=== PATIENT | male | born 1955 | race Caucasian/White ===

== ENCOUNTER 2016-11-02 18:52 | Emergency (ER) | payer BC ==
[2016-11-02 18:58] VITALS: BP 157/110
[2016-11-02] MEDS ORDERED: Albuterol/Ipratropium NEB.SOL* Albuterol 2.5 MG/Ipratropium 0.5 MG 3 ML INH ONE (19:45)
--- NOTE | 2016-11-02 19:45 | UC ---
Respiratory Complaint HPI - HPI Summary HPI Summary: over the past week has had increasing cough now has brown sputum chest and back hurts when he coughs--no fevers, no sob no ill exposures - History of Current Complaint Chief Complaint: UCBackPain Stated Complaint: URI Time Seen by Provider: 11/02/16 19:27 Hx Obtained From: Patient Onset/Duration: Gradual Onset, Lasting Days, Still Present Timing: Constant Severity Initially: Mild Severity Currently: Moderate Pain Intensity: 6 Pain Scale Used: 0-10 Numeric Character: Cough: Productive, Sputum Description: - brown Aggravating Factors: Nothing Alleviating Factors: Nothing Associated Signs And Symptoms: Positive: Pleuritic Chest Pain, Wheezing, URI - Allergies/Home Medications Allergies/Adverse Reactions: Allergies Allergy/AdvReac Type Severity Reaction Status Date / Time Penicillins Allergy Unknown Hives Verified 11/02/16 18:59 PMH/Surg Hx/FS Hx/Imm Hx Previously Healthy: No Endocrine History: Dyslipidemia Cardiovascular History: Cardiac Disease Neurological History: Seizures - Surgical History Surgical History: Yes Surgery Procedure, Year, and Place: gallbladder. shoulder impingement surgery 3 years ago - Family History Known Family History: Positive: None - Social History Occupation: Employed Full-time Lives: With Family Alcohol Use: None Substance Use Type: Prescribed Smoking Status (MU): Former Smoker Type: Cigarettes Length of Time of Smoking/Using Tobacco: on and off for 20+ years - Immunization History Vaccination Up to Date: Yes Review of Systems Constitutional: Negative Skin: Negative Eyes: Negative ENT: Negative Respiratory: Cough Cardiovascular: Negative Gastrointestinal: Negative Genitourinary: Negative Motor: Negative Neurovascular: Negative Musculoskeletal: Arthralgia - body and back aches Neurological: Negative Psychological: Negative Is Patient Immunocompromised?: No All Other Systems Reviewed And Are Negative: Yes Physical Exam Triage Information Reviewed: Yes Appearance: Well-Nourished, Ill-Appearing, Pain Distress Vital Signs: Initial Vital Signs Temp 98.1 F 11/02/16 18:55 Pulse 82 11/02/16 18:55 Resp 12 11/02/16 18:55 BP 157/110 11/02/16 18:55 Pulse Ox 100 11/02/16 18:55 Vital Signs Reviewed: Yes Eye Exam: Normal Eyes: Positive: Conjunctiva Clear ENT Exam: Normal ENT: Positive: Normal ENT inspection, Hearing grossly normal, Pharynx normal, TMs normal. Negative: Nasal congestion, Nasal drainage, Tonsillar exudate, Trismus, Muffled/hoarse voice Dental Exam: Normal Neck exam: Normal Neck: Positive: Supple, Nontender, No Lymphadenopathy Respiratory Exam: Normal Respiratory: Positive: No respiratory distress, No accessory muscle use, Wheezing, Expiration Cardiovascular Exam: Normal Cardiovascular: Positive: RRR, No Murmur, Pulses Normal, Brisk Capillary Refill Abdomen Description: Negative: CVA Tenderness (R), CVA Tenderness (L) Musculoskeletal Exam: Normal Musculoskeletal: Positive: Strength Intact, ROM Intact, No Edema Neurological Exam: Normal Neurological: Positive: Alert, Muscle Tone Normal Psychological Exam: Normal Skin Exam: Normal UC Diagnostic Evaluation - Laboratory O2 Sat by Pulse Oximetry: 100 - Radiology Xray Interpretation: No Acute Changes Radiology Interpretation Completed By: ED Physician, Radiologist Re-Evaluation - Re-Evaluation First Eval Change: Improved - feels much better after neb---increased airmovement-- Respiratory Course/Dx - Course Course Of Treatment: albuterol, zithromax, robitussin and codiene increase fluids follow with pcp - Differential Dx/Diagnosis Differential Diagnosis/HQI/PQRI: Asthma, Bronchitis, Lower Resp Infection, Sinusitis, Tuberculosis Provider Diagnoses: Bronchitis,with Bronchospasm Discharge - Discharge Plan Condition: Stable Disposition: HOME Prescriptions: Azithromycin TAB* [Zithromax TAB (Z-AJAY) 250 mg #6 tabs] 250 mg PO DAILY #4 tab guaiFENesin/CODIEN 100MG-10MG* [Robitussin AC 100Mg-10Mg*] 5 - 10 ml PO Q4H PRN #60 ml MDD 40 PRN Reason: cough Patient Education Materials: Acute Bronchitis (ED), Hypertension (ED), How to Use a Metered-Dose Inhaler and a Spacer (ED) Referrals: Inocente Patel MD [Primary Care Provider] - 2 Weeks
--- NOTE | 2016-11-02 20:22 | RAD ---
INDICATION: Back pain and "brown sputum" COMPARISON: Similar chest x-ray dated January 11, 2016 TECHNIQUE: PA and lateral views of the chest were obtained. FINDINGS: The heart and mediastinum are normal in size and contour. The lungs are grossly clear. There is no evidence of large pleural effusion. Visualized bones are normal for the patient's age. There is no radiographic evidence of free air beneath the diaphragm IMPRESSION: No radiographic evidence of acute cardiopulmonary disease.
[2016-11-02] MEDS ORDERED: Albuterol HFA INHALER* 8 gm MDI INH ONE (20:32)
[2016-11-02] MEDS ORDERED: Azithromycin TAB* 250 MG PO ONE (20:33)
[2016-11-02] MEDS ORDERED: guaiFENesin/CODIEN 100MG-10MG* 5 ML UDC PO ONE ×2 (20:33→20:45)
== END 2016-11-02 21:05 | disposition home or self-care (01) ==
LOC: UCEAST 18:52
DX: J20.9 Acute bronchitis, unspecified (principal); E78.5 Hyperlipidemia, unspecified; I51.9 Heart disease, unspecified; R56.9 Unspecified convulsions; Z90.49 Acquired absence of other specified parts of digestive tract; Z88.0 Allergy status to penicillin; Z87.891 Personal history of nicotine dependence
CPT/HCPCS: 71020; 99213; A9270-GY; G0463

== ENCOUNTER → 2018-04-03 13:23 | Day surgery (SDC) | payer BC ==
[~2018-04-03 13:23] MED LIST: Acetaminophen TAB* 325 MG PO PRN; Buffered Lidocaine 1% SYRIN* 1 ML/SYRINGE INTRADERM ONE; Bupivacaine 0.5% W/EPI SDV* 30 ML VIAL ONE; Clindamycin 900 MG/D5W BAG(*) 900 MG/50 ML BAG IVPB ONE; Dexamethasone IV* 4 MG/ML 1 ML (4 MG) IV SLOW PU ONE; Dexamethasone IV* 4 MG/ML 1 ML (4 MG) ONE; DiMENhydriNATE IV* 50 MG/ML VIAL IV PUSH PRN; EPINEPHRINE 1 MG/ML 1 ML VIAL ONE; Ketorolac INJ* 30 MG/ML 1 ML VIAL IV PRN; Ketorolac INJ* 30 MG/ML 1 ML VIAL ONE; Lactated Ringers 1000 ML Bag* 1,000 ML IV SCH; Lidocaine 2% PF * 5 ML VIAL ONE; Midazolam* 1 MG/ML 2 ML VIAL (2 MG) ONE; Naloxone* 0.4 MG/ML 1 ML VIAL IV PRN; Ondansetron INJ* 2 MG/ML VIAL ONE; Propofol* 10 MG/ML 20 ML BTL ONE; Propranolol TAB* 40 MG PO ONE; fentaNYL* 50 MCG/ML 2 ML VIAL (100 MCG VIAL) IV PRN; fentaNYL* 50 MCG/ML 2 ML VIAL (100 MCG VIAL) ONE; oxyCODONE/Acetamin 5/325 MG* TAB ONE
[2018-04-03] MEDS: oxyCODONE/Acetamin 5/325 MG* TAB PO PRN ×2 (18:58→19:00)
[2018-04-03 21:52] VITALS: BP 134/79
--- NOTE | 2018-04-05 01:33 | OP ---
DATE OF OPERATION: 04/03/18 - [facility] DATE OF : 55 SURGEON: Jake Estrada MD ASSISTANTS: 1. BOB Wang, assisted me during the first part of the procedure, the right knee. 2. BOB Bauer, assisted me during the second part of the case, the left hand. A physician miner assistant was required for the length of the procedure for help with positioning, retraction, knee manipulation, and closure. ANESTHESIOLOGIST: Dr. Nikita Fuentes. ANESTHESIA: General anesthesia, 10 cc of local anesthesia of 0.25% Marcaine with epinephrine about the right knee. PRE-OP DIAGNOSES: 1. Right knee ganglion cyst. 2. Left hand second metacarpal boss. POST-OP DIAGNOSES: 1. Right knee ganglion cyst. 2. Right knee loose body. 3. Right knee synovitis. 4. Left hand second metacarpal boss. OPERATIVE PROCEDURE: 1. Right knee arthroscopic extensive synovectomy, multiple compartments. 2. Right knee arthroscopic removal of loose body. 3. Right knee area open removal ganglion cyst. 4. Left hand open excision second metacarpal boss, excision partial metacarpal base. ANTIBIOTICS: Clindamycin 100 mg IV. IV FLUIDS: 1400 cc crystalloid. TOURNIQUET TIME: 40 minutes at 300 mmHg, around the right thigh, for the right knee procedure. 28 minutes at 250 mmHg about the left upper arm, for the left hand procedure component to the procedure. SKIN TO SKIN TIME: 96 minutes. It should be noted that this included the right knee procedure followed by the prepping and draping for the second component of the operation, followed by the left hand procedure. It should be noted that I performed a formal surgical time-out before the right knee procedures and then before the left hand procedure. RADIATION UTILIZED: Mini C-arm was used for the left hand component of the procedure, a brief period of time. ARTHROSCOPIC FLUID UTILIZED: Unknown. SPECIMEN: I sent the loose body from the right knee for Pathology. I also sent ganglion cyst wall to Pathology. I also sent a fragment of removed bone from the left second metacarpal base to Pathology. IMPLANTS: None. COMPLICATIONS: None. ESTIMATED BLOOD LOSS: Minimal. INDICATIONS FOR PROCEDURE: The patient presented to me with a bump, persistent about the right knee. This was actually just anterior to the proximal tibia fibula joint. It has been present for over 8 months, worsening, getting larger with time. Cosmetically unappealing to the patient and had started to cause pain. His primary care physician had aspirated it, but it had returned. The patient also described a bump about the contralateral left hand. He thought that it might be a ganglion because he had had contralateral right wrist ganglion removed with surgery in the past. MRI imaging demonstrated that although the bump about the right knee was very close to the proximal tibia fibula joint, that in fact it had a stalk that stretched back to the anterior aspect of the knee joint, about the fat deep to the patellar tendon. X-ray imaging was obtained of the left wrist. I was confident enough based on this exam that he had a metacarpal boss and so we avoided advanced imaging. I signed the patient up for surgery. We discussed the risks and potential complications of these procedures, including recurrence of both the presumably ganglion cyst about the right knee as well as of the metacarpal boss. DESCRIPTION OF PROCEDURE: On preoperative holding, the patient signed a written consent. Operative extremities were marked at preoperative holding. The patient's stated a strong preference for a pathology of any removed samples of body products. The patient was taken to the operating room and placed supine on the operating room table. Sedated and intubated. The right lower extremity was prepped and draped. Tourniquet was placed about the right proximal thigh. A post was placed along the bed and the foot bump was placed on the bed. Surgical time-out was performed. Esmarch was applied to 300 mmHg and the tourniquet was elevated. Established an anterolateral knee arthroscopy portal. Evaluated the patellofemoral compartment. No articular cartilage damage appreciated. The patient did have synovitis suprapatellar. I made an anteromedial knee arthroscopy portal under direct visualization. I debrided this suprapatellar synovitis with an arthroscopic shaver. I next moved down to the intercondylar notch. The patient had a very thickened ligamentum mucosum with much fat about it. The patient had a significant anterior synovitis which I debrided with arthroscopic shaver. I was able to pinpoint where there was a hole in the capsule. I did so by manipulating from the outside the bump and looking for globules of ganglion cyst fluid entering the joint. I opened up the aperture of that hole significantly with both arthroscopic shaver and switching stick. I was able to pass the switching stick from the knee joint, along the anterior aspect of the tibia, down to the ganglion cyst. Opening this up mainly feel comfortable that the ganglion cyst would not recur in the future. It should be noted that just when I first identified the opening in the capsule , a small loose body, hard, cartilaginous or bony, I removed this with a grasper. It was perhaps 3 mm in size in diameter. I did a diagnostic arthroscopy of the remainder of the knee. No meniscus tear or articular cartilage damage. I would like to change the size of that loose body. I think it is more likely that it was approximately 4.5 mm in diameter. I used that as I compared it to the work of the arthroscopic shaver I used intraoperatively. After having confirmed that I had debrided all the inflamed synovium in the joint and there were no more loose bodies. Next, exited the knee joint, all fluids and instruments. I next identified the ganglion. It was quite large. Some fluid now from the knee joint had tracked down into the area of the ganglion, but the ganglion was still very much palpable. I made a longitudinal incision overlying it in the skin. I dissected deep tissue down to the ganglion cyst. I debrided around it. As it was typically the case, it started to rupture and the gel to ooze out. I identified the cyst ruiz and sharply dissected it while being careful with surround anatomy. I removed the ganglion cyst wall structure. Irrigation, then closed that incision site with buried simple stitches in the subcutaneous tissue using Vicryl 2-0 suture. Then a closure of the skin with a running stitch using nylon 3-0 suture. 10 cc of local anesthesia into the subcutaneous tissue surrounding the incision sites. Xeroform, 4x4s, ABDs, sterile Webril, Arya bandages from foot to proximal thigh. Tourniquet was dropped. Cooling unit was not placed at this point, it was placed at the end of the second component of the procedure. I took drapes down off the right lower extremity. The right lower extremity was wrapped in an Arya bandage from right foot to right proximal thigh. We next started the second component of the procedure. My physician miner assistant switched. Hand table was applied to the table for the left upper extremity. A tourniquet was placed around the left upper arm. The left upper extremity was prepped and draped. Surgical time-out was performed. Esmarch was applied and the tourniquet was elevated to 250 mmHg. I then applied the bump on the dorsal aspect of the patient's left hand. I placed a spinal needle into what I believed to be the joint between the second metacarpal and the trapezoid. I brought mini C-arm in and confirmed that this was the correct location. I used this to help determine where I would make my transverse skin incision. I made the transverse skin incision just proximal to the prominent area of the metacarpal boss, at about the level of the joint. I made a skin incision that was transverse, proximally 3 to 4 cm in length. Dissected down with scissors through subcutaneous tissue, respecting all superficial veins and nerves. Dissected down to capsule overlying the second metacarpal trapezoid joint. This was incised longitudinally. I marked this layer with a marking pen prior to cutting it. That layer was retracted. Identified the second metacarpal base as the area of prominence palpable through the skin. This was clearly the offending structure. I noted the ECRL, inserting along the medial aspect of the base. I pulled it out of the way with retraction. I debrided the second metacarpal base of its prominence with a small rongeur. I respected other surrounding bones. I palpated the bone as I retracted. I removed less than 33% of the bone. I retracted and left to make the bone no longer prominent. Irrigation. Application of bone wax. A closure of the capsule with Vicryl 2-0 suture and [id number] stitches. Closure of the skin incision with a running stitch using nylon 4-0 suture. Dropped the tourniquet. No bleeding. Took a final x- ray view. Difficult to discern it with an x-ray imaging. I placed a dressing which consisted of Xeroform, 4x4s, sterile Webril, volar splints, over wrapped in Arya bandage. The patient was awakened and extubated and brought to the PACU. DISPOSITION: The patient was to receive Bactrim for 3 days for infection prophylaxis and Percocet as needed for pain control. The patient was also to receive aspirin for 2 weeks for DVT prophylaxis. The patient is to start physical therapy immediately for his right knee. Wound care instructions provided for right knee. The patient is to remain in the splint until followup appointment. The patient will follow up with me in clinic in 10 to 14 days. [id number]/[facility] #: [id number] KEYSHAWN
== END | disposition home or self-care (01) ==
LOC: OR 13:23
PROVIDERS: ATTEND Orthopaedic Surgery
DX: M65.861 Other synovitis and tenosynovitis, right lower leg (principal); M67.461 Ganglion, right knee; M25.742 Osteophyte, left hand; M23.41 Loose body in knee, right knee; I10 Essential (primary) hypertension; E78.5 Hyperlipidemia, unspecified; K21.9 Gastro-esophageal reflux disease without esophagitis; G25.0 Essential tremor; F31.9 Bipolar disorder, unspecified; Z87.891 Personal history of nicotine dependence
CPT/HCPCS: 76000; 88304; 88311; A9270-GY; J1100; J1885; J2250; J2405; J2704; J3010

== ENCOUNTER 2018-09-09 14:59 | Emergency (ER) | payer BC ==
[2018-09-09 15:23] VITALS: BP 115/80
--- NOTE | 2018-09-09 15:31 | UC ---
Laceration HPI - HPI Summary HPI Summary: Patient presents to urgent care for evaluation of a laceration to his left index finger that occurred while at work. Patient was attempting to get him bleeding into a knife: When it slipped cutting his hand. Patient states his tetanus is up-to-date. Patient isn't immunocompromised. Patient wash her nursing and bandage. Patient to continue weights and he came here. No paresthesias no weakness. Patient's right-hand dominant. Patient's medications reviewed this visit. Is not on anticoagulants - History Of Current Complaint Chief Complaint: UCLaceration Stated Complaint: FINGER LACERATION Time Seen by Provider: 09/09/18 15:27 Hx Obtained From: Patient Pain Intensity: 5 - Allergies/Home Medications Allergies/Adverse Reactions: Allergies Allergy/AdvReac Type Severity Reaction Status Date / Time Penicillins Allergy Hives Verified 09/09/18 15:23 Home Medications: Home Medications Multivitamin [Multivitamins] 1 tab PO DAILY 09/09/18 [History Confirmed 09/09/18 ] traZODone TAB* [Desyrel TAB*] 100 mg PO BEDTIME PRN 09/09/18 [History Confirmed 09/09/18] PMH/Surg Hx/FS Hx/Imm Hx Previously Healthy: Yes - Surgical History Surgical History: Yes Surgery Procedure, Year, and Place: cholecysectomy;. right shoulder impingement surgery;. skin ca removed from ear. Mar 2018 - right knee ganglion removed, left metacarpal cyst removed - Family History Known Family History: Positive: None, Non-Contributory - Social History Occupation: Employed Part-time Alcohol Use: Rare Substance Use Type: Marijuana Substance Use Comment - Amount & Last Used: MARIJUANA ON OCCASION Smoking Status (MU): Former Smoker Type: Cigarettes Amount Used/How Often: 1 PPD X 16-17 YEARS Length of Time of Smoking/Using Tobacco: on and off for 20+ years Have You Smoked in the Last Year: No When Did the Patient Quit Smoking/Using Tobacco: 2012 - Immunization History Most Recent Tetanus Shot: 6-7 years ago Vaccination Up to Date: Yes Review of Systems All Other Systems Reviewed And Are Negative: Yes Constitutional: Positive: Negative Skin: Positive: Other - lacertaion left index Physical Exam - Summary Physical Exam Summary: Vital Signs Reviewed: Yes A+Ox3, no distress Eyes: Conjunctiva Clear ENT: Hearing grossly normal neck: supple Respiratory: Positive: No respiratory distress, No accessory muscle use Cardiovascular: skin color reflect adequate perfusion, CBT <2 sec fingertip Musculoskeletal Exam: + flex/ext mcp, dip, pip left index Neurological: Positive: Alert, ambulatory without difficulty Psychological: Positive: Normal Response To examiner Skin: Positive: no rash, no ecchymosis 1.5cm laceration between dip/pip left index lateral aspect - oozing Triage Information Reviewed: Yes Vital Signs: Initial Vital Signs Temp 98.9 F 09/09/18 15:18 Pulse 70 09/09/18 15:18 Resp 16 09/09/18 15:18 BP 115/80 09/09/18 15:18 Pulse Ox 98 09/09/18 15:18 Laceration Repair - Laceration Repair 1 Procedure Summary: verbal permission to treat time out completed with RN at bedside pt prepped in usual, sterile fashion copious irrigation with 200ml sterile saline under pressure [address] pt tolerated well reviewed with pt wound care s/s infection return precautions Description: Linear Laceration Size After Repair: Length (cm) - 1.5 Modified For Repair: No Type Injection: Local - 1ml Anesthesia Used: 1.0% Lido Cleansing Completed Via Routine Prep: Yes Closure Material: Sutures Closure Method: Single Layer Suture Of: Skin Suture Type: Prolene - 4-0 Laceration Course/Dx - Course/Dx Course Of Treatment: Patient presents to urgent care for laceration he sustained at work on his left index finger. Patient's right-hand dominant. Laceration was 1.5 cm in length. Patient distally intact. Wound closed with 2 simple interrupted Prolene sutures. Patient tolerated well. Patient. Tetanus is up-to-date. Workmen's Comp. forms completed. pt placed in finger splint by nurse. Recommend patient follow up with Dr. Trina chahal. Patient comfortable agreement with plan. Patient applied analgesia prior to leaving. Reviewed wound care with patient and signs of infection. - Diagnosis Provider Diagnosis: Laceration of left index finger Discharge - Sign-Out/Discharge Documenting (check all that apply): Patient Departure All imaging exams completed and their final reports reviewed: No Studies - Discharge Plan Condition: Stable Disposition: HOME Patient Education Materials: Finger Laceration (ED) Referrals: Inocente Patel MD [Primary Care Provider] - Jovanni Islas MD [Medical Doctor] - Additional Instructions: - your stitches should come out in 8-10 days - it is recommended you contact the occupational medicine provider to schedule this follow-up appointment - okay to alternate ibuprofin (advil, motrin) and tylenol every 3hours as needed for pain -Anticipate increased discomfort over the next several hours as the numbing medication wears off -Keep your wound clean and dry - no soaking for 24 hours. Then, okay for wound to get wet - pat dry, don't rub -apply a thin layer of antibiotic ointment (neosporin, polysporin) 2-3 times a day - wear splint as much as possible for the first 5 days - when you have a cut, you will have a scar. To minimize scar formation - keep your wound clean - monitor for signs of infection - reddness, red streaking, odor, green drainage - contact your doctor or return with questions or concerns - Billing Disposition and Condition Condition: STABLE Disposition: Home
[2018-09-09] MEDS ORDERED: Lidocaine 1% MPF ** 5 ML VIAL INJ ONE (15:38)
== END 2018-09-09 16:15 | disposition home or self-care (01) ==
LOC: UCEAST 14:59
DX: S61.211A Laceration without foreign body of left index finger without damage to nail, initial encounter (principal); W26.0XXA Contact with knife, initial encounter; Y93.89 Activity, other specified; Y92.89 Other specified places as the place of occurrence of the external cause; Y99.0 Civilian activity done for income or pay; Z88.0 Allergy status to penicillin; Z87.891 Personal history of nicotine dependence
CPT/HCPCS: 12001; 99212; G0463